=== PATIENT | female | born 1990 | race African-American/Black ===

== ENCOUNTER 2018-10-15 01:40 | Emergency (ER) | payer SELFPAY ==
[~2018-10-15] VITALS: Ht 165.1 cm; Wt 56.7 kg
[~2018-10-15 01:40] MED LIST: [UNRECOGNIZED DRUG - CODE]
[2018-10-15 01:52] VITALS: BP 133/91
[2018-10-15] MEDS ORDERED: IV NORMAL SALINE 1,000ML 1,000 ML IV ONE (03:00)
[2018-10-15] MEDS ORDERED: ALLA20GE TP (03:16)
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
== END 2018-10-15 03:20 | disposition home or self-care (01) ==
LOC: ER 01:40
DX: S01.412A Laceration without foreign body of left cheek and temporomandibular area, initial encounter (principal); F17.200 Nicotine dependence, unspecified, uncomplicated; X99.0XXA Assault by sharp glass, initial encounter; Y93.89 Activity, other specified; Y92.89 Other specified places as the place of occurrence of the external cause; Y99.8 Other external cause status
CPT/HCPCS: 12013; 12014; 99283

== ENCOUNTER 2018-10-27 17:39 | Emergency (ER) | payer SELFPAY ==
[~2018-10-27 17:39] MED LIST changes: +ALLA20GE TP
[2018-10-27 18:32] VITALS: BP 125/71
--- NOTE | 2018-10-27 19:14 | PHYS DOC ---
Past History Past Medical History: No Pertinent History Past Surgical History: No Surgical History Smoking: Greater than 1 pack/day Alcohol Use: Occasionally Drug Use: Amphetamine Adult General Chief Complaint Chief Complaint: SUTURE/STAPLE REMOVAL HPI HPI Patient is a 28 year old female who presents to the emergency department for suture removal. The patient was seen on October 15, 2018 after suffering a left- sided facial laceration which was repaired by Dr. Terrazas here at [facility] emergency department. The patient was instructed to follow-up in 5 days for removal of sutures, however she is presenting on day 12 at this time. The patient has no complaints and states that the laceration has not been having any drainage, redness, or pain. Review of Systems Review of Systems Constitutional: Denies fever or chills [] HENT: Denies nasal congestion or sore throat [] Integument: Denies rash or skin lesions [] Neurologic: Denies headache, focal weakness or sensory changes [] All other systems were reviewed and found to be within normal limits, except as documented in this note. Allergies Allergies Allergies Coded Allergies Type Severity Reaction Last Updated Verified No Known Drug Allergies 10/24/13 No Physical Exam Physical Exam Constitutional: Well developed, well nourished, no acute distress, non-toxic appearance. [] HENT: Normocephalic, atraumatic, bilateral external ears normal, left cheek laceration healed with sutures in place, oropharynx moist, no oral exudates, nose normal. [] Skin: Warm, dry, no erythema, no rash. [] Extremities: No tenderness, no cyanosis, no clubbing, ROM intact, no edema. [] Neurologic: Alert and oriented X 3, normal motor function, normal sensory function, no focal deficits noted. [] Current Patient Data Vital Signs Vital Signs Date Time Temp Pulse Resp B/P (MAP) Pulse Ox O2 Delivery O2 Flow Rate FiO2 10/27/18 18:32 97.3 62 18 99 Room Air Lab Results Not performed EKG EKG Not performed[] Radiology/Procedures Radiology/Procedures Indication: Facial laceration repair on October 15, 2018 Procedure: The patient was placed in the appropriate position and the sutures were removed without difficult The patient tolerated the procedure without difficulty. Complications: None[] Course & Med Decision Making Course & Med Decision Making Pertinent Labs and Imaging studies reviewed. (See chart for details) Sutures removed in the emergency department. Advised to clean wound edges with peroxide. Recommended routine follow-up with primary doctor as needed. Patient was understanding and in agreement with treatment plan. Dragon Disclaimer Dragon Disclaimer This electronic medical record was generated, in whole or in part, using a voice recognition dictation system. Departure Departure: Impression: Primary Impression: Visit for suture removal Disposition: HOME, SELF-CARE Condition: GOOD Referrals: PCP,NO (PCP) Patient Instructions: Suture Removal-Brief Additional Instructions: Follow-up with your primary care doctor as needed. Return to the emergency department for any worsening symptoms. LM RUBI MD Oct 27, 2018 19:14
== END 2018-10-27 19:20 | disposition home or self-care (01) ==
LOC: ER 17:39
DX: S01.412D Laceration without foreign body of left cheek and temporomandibular area, subsequent encounter (principal); F17.200 Nicotine dependence, unspecified, uncomplicated; X58.XXXD Exposure to other specified factors, subsequent encounter
CPT/HCPCS: 99281; 99282

== ENCOUNTER → 2020-08-05 | Emergency (ER) | payer SELFPAY ==
[~2020-08-05] VITALS: Ht 165.1 cm; Wt 60.0 kg
[2020-08-05 06:31] VITALS: BP 128/81
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
--- NOTE | 2020-08-05 06:55 | RAD ---
RIGHT ANKLE AP, LATERAL, OBLIQUE Clinical Indication: Reason: ankle pain / Comparison: None. Findings: There is no acute fracture or dislocation. Mineralization is normal. Joint spaces are maintained. The ankle mortise is intact. There is no ankle joint effusion. There is no radiographically apparen t soft tissue swelling. IMPRESSION: Normal ankle radiographs. Electronically signed by: Eliceo Pond MD (08/05/2020 6:52 AM) [facility]
[2020-08-05 07:55] LABS: BASO % 1 % (0-3); EOS % 0 % (0-3); HEMATOCRIT 45.1 % (36.0-47.0); HEMOGLOBIN 13.9 g/dL (12.0-15.5); LYMPH % 17 % (24-48); MEAN CORPUSCULAR HEMOGLOBIN 29 pg (25-35); MEAN CORPUSCULAR HGB CONC 31 g/dL (31-37); MEAN CORPUSCULAR VOLUME 93 fL (79-100); MONO # 0.4 x10^3/uL (0.0-1.1); MONO % 7 % (0-9); NEUT # 4.2 x10^3uL (1.8-7.7); NEUT % 75 % (31-73); PLATELET COUNT 241 x10^3/uL (140-400); RED BLOOD COUNT 4.84 x10^6/uL (3.50-5.40); RED CELL DISTRIBUTION WIDTH 16.2 % (11.5-14.5); WHITE BLOOD COUNT 5.6 x10^3/uL (4.0-11.0)
[2020-08-05 08:05] LABS: CALCIUM 9.4 mg/dL (8.5-10.1); CREATININE 0.8 mg/dL (0.6-1.0); GFR 102.6; POTASSIUM 3.7 mmol/L (3.5-5.1)
--- NOTE | 2020-08-05 08:05 | RAD ---
EXAM: CT Head without IV contrast INDICATION: Reason: ams, neck pain? / Spl. Instructions: / History: TECHNIQUE: Multi-detector row CT images were obtained of the head without the use of IV contrast. All CT scans performed at this facility utilize dose optimization techniques as appropriate to the exam, including the following: Automated exposure control and adjustment of the mA and/or KV according to patient size (this includes techniques or standardized protocols for targeted exams where dose is ind ication/reason for exam). COMPARISON: None FINDINGS: BRAIN PARENCHYMA: No evidence of acute intraparenchymal hemorrhage or infarct. No abnormal parenchyma l density or mass. VENTRICLES & EXTRA-AXIAL SPACES: Ventricles are within normal limits. Basilar cisterns are patent. N o pathologic extra-axial fluid collection or mass. ORBITS: Orbital contents are unremarkable. SINUSES: Visualized paranasal sinuses and mastoid air cells are clear. OSSEOUS & SOFT TISSUES: Calvarium and skull base are intact. IMPRESSION: Normal CT of the head without contrast. EXAM: CT Cervical Spine without IV contrast INDICATION: Reason: ams, neck pain? / Spl. Instructions: / History: TECHNIQUE: Multi-detector row CT images were obtained through the cervical spine without the use of IV contrast. Post-processing sagittal and coronal reconstructed images were obtained for interpretati on. All CT scans performed at this facility utilize dose optimization techniques as appropriate to th e exam, including the following: Automated exposure control and adjustment of the mA and/or KV accord ing to patient size (this includes techniques or standardized protocols for targeted exams where dose is indication/reason for exam). COMPARISON: None FINDINGS: CRANIOCERVICAL JUNCTION: Unremarkable. ALIGNMENT: Alignment is within normal limits. OSSEOUS: No evidence of fracture or bone destruction. DISC SPACES: Unremarkable. FACET JOINTS: Unremarkable. SPINAL CANAL: Unremarkable. NEUROFORAMINA: Unremarkable. SOFT TISSUES: Unremarkable. IMPRESSION: Normal CT of the cervical spine. Electronically signed by: Genny Tavarez MD (08/05/2020 8:02 AM) [id number]
== END | disposition home or self-care (01) ==
LOC: ER 06:13
DX: F15.10 Other stimulant abuse, uncomplicated (principal); M25.571 Pain in right ankle and joints of right foot; M54.2 Cervicalgia; F17.200 Nicotine dependence, unspecified, uncomplicated
CPT/HCPCS: 36415; 70450; 72125; 73610; 80048; 85025; 99285; G0480